=== PATIENT | male | born 1940 | race Caucasian/White ===

== ENCOUNTER 2017-05-15 11:06 | Inpatient (IN) | payer MEDICARE ==
--- NOTE | 2017-05-10 16:12 | Diagnostic Imaging Report ---
PROCEDURE: Frontal and lateral views of the chest. COMPARISON: Patients [facility], DX, CHEST 2 VIEWS, 03/13/2015, 9:48. INDICATIONS: PRE OP FINDINGS: Lines/tubes: None. Lungs: The lungs are well inflated and clear. There is no evidence of pneumonia or pulmonary edema. Pleura: There is no pleural effusion or pneumothorax. Heart and mediastinum: The heart and the mediastinum are normal. Bones: No acute bony abnormality. Bilateral shoulder small orthopedics anchors. IMPRESSION: 1. No acute cardiopulmonary disease. Markus Pastrana M.D. Dictated by: Markus Pastrana M.D. on 05/10/2017 at 16:19 Electronically approved by: Markus Pastrana M.D. on 05/10/2017 at 16:19
[2017-05-12 08:46] LABS: BASOPHILS # (AUTO) 0.1 (0.0-0.1); BASOPHILS % 0.6 % (0.0-1.0); HEMATOCRIT 43.8 % (38.2-49.6); HEMOGLOBIN 14.3 g/dL (14.0-18.0); LYMPHOCYTES # (AUTO) 1.5 (1.0-3.2); LYMPHOCYTES % 18.3 % (18.0-39.1); MEAN CORPUSCULAR HEMOGLOBIN 29.6 pg (28-32); MEAN CORPUSCULAR HGB CONC 32.6 g/dL (31-35); MEAN CORPUSCULAR VOLUME 90.7 fL (81-99); MONOCYTES # (AUTO) 0.9 (0.2-0.8); MONOCYTES % 10.7 % (4.4-11.3); NEUTROPHILS # (AUTO) 5.8 (2.1-6.9); NEUTROPHILS % 69.3 % (38.7-80.0); PLATELET COUNT 218 x10e3/uL (140-360); RED BLOOD COUNT 4.83 x10e6/uL (4.3-5.7); RED CELL DISTRIBUTION WIDTH 12.7 % (11.7-14.4)
[2017-05-12 09:09] LABS: ALBUMIN 3.4 g/dL (3.5-5.0); ALBUMIN/GLOBULIN RATIO 0.9 (0.8-2.0); CALCIUM 9.4 mg/dL (8.4-10.2); CREATININE, SERUM 1.36 mg/dL (0.72-1.25)
[~2017-05-15] VITALS: Ht 165.1 cm; Wt 77.6 kg
[2017-05-15 04:00] VITALS: BP 102/67
[~2017-05-15 11:06] MED LIST: AMLODIPINE BESY10 MG PO; ATENOLOL50 MG PO; BYSTOLIC10 MG PO; DICLOFENAC SODI75 MG PO; EQUATE ALLERGY; EXFORGE PO; FLOMAX PO; GABAPENTIN300 MG PO; LISINOPRIL40 MG PO; LORTAB 7.5-5001 EACH PO; LOSARTAN POTAS100 MG PO; LOVASTATIN40 MG PO; LOVENOX40 MG/0.4 SC; LYRICA75 MG PO; TAMSULOSIN HCL0.4 MG PO; TRAMADOL PO; ULTRAM50 MG PO; [UNRECOGNIZED DRUG - OTHER]
[2017-05-15] MEDS ORDERED: CEFAZOLIN SOD 1 GM/NS 50ML 50 ML IV ONE (11:18)
[2017-05-15] MEDS ORDERED: DIPHENHYDRAMINE HCL INJ 50 MG/ML VIAL IM PRN (15:00)
[2017-05-15] MEDS ORDERED: ACETAMINOPHEN 1000 MG/100 ML IV PRN (15:00)
[2017-05-15] MEDS ORDERED: NALOXONE HCL INJ 0.4 MG/ML AMP IV PRN (15:00)
[2017-05-15] MEDS ORDERED: FENTANYL CITRATE/PF 100MCG/2 ML INJ ONE ×3 (15:36→17:34)
[2017-05-15] MEDS ORDERED: MORPHINE SULFATE 1 MG/ML 30ML PCA ONE (15:42)
[2017-05-15] MEDS ORDERED: MIDAZOLAM HCL 2 MG/2 ML VIAL ONE (15:52)
[2017-05-15] MEDS ORDERED: MORPHINE SULFATE 5 MG/ML VIAL ONE (15:55)
[2017-05-15] MEDS ORDERED: HYDROMORPHONE 2MG/ML INJ ONE (16:05)
--- NOTE | 2017-05-15 16:48 | Diagnostic Imaging Report ---
PROCEDURE: A single AP view of the chest. COMPARISON: None. INDICATIONS: FOLLOW UP PNEUMOTHORAX FINDINGS: Lines/tubes: None. Lungs: Near total collapse of the right lung. The left lung is clear . Pleura: Large right pneumothorax, measuring 8.2 cm and the right midclavicular line. Heart and mediastinum: The heart and the mediastinum are unremarkable. Bones: No acute bony abnormality. IMPRESSION: Large right pneumothorax. The findings were discussed with Dr. Brandon at 1652 hrs. on 05/15/2017. Dictated by: Ori Goldberg M.D. on 05/15/2017 at 16:56 Electronically approved by: Ori Goldberg M.D. on 05/15/2017 at 16:56
[2017-05-15] MEDS: DOCUSATE SODIUM 100 MG CAP PO SCH (17:00)
[2017-05-15 17:57] VITALS: BP 125/58
[2017-05-15] MEDS ORDERED: NEOSTIGMINE 5 MG/5ML SYR ONE (18:20)
[2017-05-15] MEDS ORDERED: ROCURONIUM BROMIDE 10 MG/ML 5ML VIAL ONE (18:20)
[2017-05-15] MEDS ORDERED: LIDOCAINE HCL 2% LOCAL INJ 5 ML SDV VIAL INJ ONE (18:20)
[2017-05-15] MEDS ORDERED: PROPOFOL IV EMULSION 10 MG/ML 20 ML VIAL ONE (18:20)
[2017-05-15] MEDS ORDERED: EPHEDRINE SULFATE INJ 50 MG/10 ML SYR ONE (18:20)
[2017-05-15] MEDS ORDERED: ONDANSETRON HCL INJ 2 MG/ML VIAL ONE (18:20)
[2017-05-15] MEDS ORDERED: GLYCOPYRROLATE INJ 1MG/ 5 ML SYR ONE (18:20)
[2017-05-15] MEDS ORDERED: SEVOFLURANE INHAL SOLN 250 ML PEN BTL ONE (18:20)
[2017-05-15] MEDS ORDERED: DEXAMETHASONE SOD PHOS INJ 4 MG/ML VIAL ONE (18:20)
[2017-05-15 18:28] VITALS: BP 125/58
--- NOTE | 2017-05-15 18:34 | Diagnostic Imaging Report ---
PROCEDURE:IMAGE GUIDANCE-FLUOR0(DRAINAGE TECHNIQUE: INDICATION:Right pneumothorax COMPARISON:Portable chest 05/15/2017. FINDINGS: The patient was placed supine on the fluoroscopy unit. The right lateral chest wall was prepped and draped in the usual sterile fashion. 1% lidocaine was infused into the subcutaneous tissues for local anesthesia. An 18 gauge needle was advanced into the right pleural space along the midaxillary line at the level of the interspace between ribs 5 and 6. A 0.035 Bentson wire was advanced centrally fluoroscopic guidance. A single dilation was performed over the wire. A 12 Citizen [place] all purpose drainage catheter was advanced over the wire. The tip of the catheter was positioned in the right apex. The wire was removed. The catheter was locked into position. The catheter was secured to the skin with 3-0 Ethilon suture. The right pneumothorax was aspirated. The catheter was attached to closed vacuum drainage and then to wall suction. A sterile dressing was applied. No immediate complications. The patient tolerated the procedure well. The patient was transferred to the post procedure area in stable unchanged condition. CONCLUSION: Successful placement of a right pleural drainage catheter utilizing fluoroscopic guidance for a right pneumothorax. Dictated by: Ori Goldberg M.D. on 05/15/2017 at 18:41 Electronically approved by: Ori Goldberg M.D. on 05/15/2017 at 18:41
[2017-05-15] MEDS: D5.45%NS/KCL 20MEQ 1,000 ML IV SCH ×2 (18:57→22:55)
[2017-05-15 20:00] VITALS: BP 136/67
[2017-05-15] MEDS: CEFAZOLIN SOD 1 GM/NS 50ML 50 ML IV SCH (22:02)
[2017-05-16 00:01] VITALS: BP 151/71
[2017-05-16] MEDS: ONDANSETRON HCL INJ 2 MG/ML VIAL IV PRN (02:46)
[2017-05-16] MEDS: D5.45%NS/KCL 20MEQ 1,000 ML IV SCH ×3 (02:46→22:55)
[2017-05-16 04:00] VITALS: BP 140/66
[2017-05-16] MEDS: MORPHINE SULFATE 1 MG/ML 30ML PCA IV PRN ×2 (04:25→19:04)
[2017-05-16] MEDS: CEFAZOLIN SOD 1 GM/NS 50ML 50 ML IV SCH ×3 (05:13→21:45)
[2017-05-16] MEDS ORDERED: METHOCARBAMOL 750 MG TAB PO PRN (05:15)
[2017-05-16] MEDS ORDERED: DIAZEPAM INJ 5 MG/ML 2 ML IV ONE (05:30)
--- NOTE | 2017-05-16 06:57 | Diagnostic Imaging Report ---
EXAM: CHEST SINGLE (PORTABLE), AP 1 view DATE: 05/16/2017 6:00 AM Time stamp on exam: 0542 hours INDICATION: Right pneumothorax, chest tube COMPARISON: AP view of the chest May 15, 2017 at 1616 hours FINDINGS: LINES/TUBES: Interval placement of right pleural pigtail catheter. LUNGS: Mild residual right lower lobe atelectasis. PLEURA: No effusions or pneumothorax. HEART AND MEDIASTINUM: Stable appearance. BONES AND SOFT TISSUES: Surgical clips and mame project over the right upper quadrant of the abdomen. Ligamentous screw projects over the left humeral head. IMPRESSION: Interval placement of right pleural pigtail catheter. No residual pneumothorax. Signed by: Dr. Nataly Mi M.D. on 05/16/2017 6:53 AM
[2017-05-16 07:46] LABS: ANION GAP 12.4 mmol/L (8-16); CALCIUM 8.9 mg/dL (8.4-10.2); CREATININE, SERUM 1.94 mg/dL (0.72-1.25); POTASSIUM 4.4 mmol/L (3.5-5.1)
[2017-05-16 07:49] VITALS: BP 155/72
[2017-05-16 07:49] LABS: BASOPHILS % 0.2 % (0.0-1.0); HEMATOCRIT 40.8 % (38.2-49.6); HEMOGLOBIN 13.5 g/dL (14.0-18.0); LYMPHOCYTES # (AUTO) 0.7 (1.0-3.2); LYMPHOCYTES % 5.6 % (18.0-39.1); MEAN CORPUSCULAR HEMOGLOBIN 29.5 pg (28-32); MEAN CORPUSCULAR HGB CONC 33.1 g/dL (31-35); MEAN CORPUSCULAR VOLUME 89.1 fL (81-99); MONOCYTES # (AUTO) 1.4 (0.2-0.8); MONOCYTES % 11.1 % (4.4-11.3); NEUTROPHILS # (AUTO) 10.5 (2.1-6.9); NEUTROPHILS % 82.6 % (38.7-80.0); PLATELET COUNT 209 x10e3/uL (140-360); RED BLOOD COUNT 4.58 x10e6/uL (4.3-5.7); RED CELL DISTRIBUTION WIDTH 12.3 % (11.7-14.4)
[2017-05-16] MEDS: DOCUSATE SODIUM 100 MG CAP PO SCH ×2 (09:00→15:56)
[2017-05-16 13:02] VITALS: BP 153/70
[2017-05-16 16:30] VITALS: BP 136/62
--- NOTE | 2017-05-16 16:33 | Diagnostic Imaging Report ---
PROCEDURE: A single AP view of the chest. COMPARISON: Patients [facility], DX, CHEST SINGLE (PORTABLE), 05/16/2017, 5:42. INDICATIONS: SURGERY YESTERDAY, FOLLOW UP PNEUMOTHORAX FINDINGS: Lines/tubes: Stable right pleural pigtail catheter. Lungs: Lungs are slightly hypoinflated. Slight improvement in linear opacities in the right lower lung, consistent with atelectasis. No consolidation or pulmonary edema. Pleura: There is no pleural effusion or pneumothorax. Heart and mediastinum: Mild prominence of the cardiac silhouette, likely due to AP portable projection. Pulmonary vasculature is normal. Bones: No acute bony abnormality. IMPRESSION: 1. no pneumothorax is visualized. Iker Samuels M.D. Dictated by: Iker Samuels M.D. on 05/16/2017 at 16:40 Electronically approved by: Iker Samuels M.D. on 05/16/2017 at 16:40
[2017-05-16 20:00] VITALS: BP 171/69
[2017-05-16] MEDS: AMLODIPINE BESYLATE 10 MG TAB PO SCH (21:35)
[2017-05-16] MEDS: SIMVASTATIN 20 MG TAB PO SCH (21:35)
[2017-05-16] MEDS: ATENOLOL 50 MG TAB PO SCH (21:35)
[2017-05-16] MEDS: TAMSULOSIN HCL 0.4 MG CAP PO SCH (21:35)
[2017-05-17] VITALS: BP 154/70
--- NOTE | 2017-05-17 00:20 | Consultation ---
DATE OF CONSULTATION: May 16, 2017 PULMONARY CONSULTATION HISTORY: An unfortunate 76-year-old gentleman, status post right nephrectomy for cancer incidentally found during an MRI of the spine. He was to have an ablation. MEDICATIONS: Diclofenac, losartan, amlodipine, Flomax, atenolol, lovastatin, and tramadol. History of hypertension, history of inflammation of pericardium, history of degenerative arthritis. SOCIAL HISTORY: He was a high school biology teacher, principal. Nonsmoker. No alcohol. Born in [place]. Had gallbladder surgery, knee replacement, toe surgery, rotator cuff surgery, back surgery. FAMILY HISTORY: Positive for cancer of the colon, coronary artery disease, and heart disease. PHYSICAL EXAMINATION GENERAL: He is a well-developed white male looking younger than stated age. VITALS: Temperature 97.4, pulse 55, respiration 17, blood pressure 153/71. HEAD: Normocephalic, atraumatic. EYES: Extraocular muscles intact. LUNGS: Diminished breath sounds, but clear. Chest tube right chest. No wheeze. No obvious air drainage. ABDOMEN: Nontender surgical wound. EXTREMITIES: Not edematous. Surgical scars. IMPRESSION: Resolved pneumothorax. No obvious air leak. PLAN: Discontinue chest tube. Mobilization. Incentive spirometry. Thank you for this kind referral. Job#: [id number] CQ
[2017-05-17] MEDS: D5.45%NS/KCL 20MEQ 1,000 ML IV SCH ×3 (03:32→13:27)
[2017-05-17] MEDS: CEFAZOLIN SOD 1 GM/NS 50ML 50 ML IV SCH ×3 (05:47→21:45)
[2017-05-17 06:48] LABS: BASOPHILS % 0.4 % (0.0-1.0); HEMATOCRIT 38.5 % (38.2-49.6); HEMOGLOBIN 12.5 g/dL (14.0-18.0); LYMPHOCYTES % 8.7 % (18.0-39.1); MEAN CORPUSCULAR HEMOGLOBIN 29.3 pg (28-32); MEAN CORPUSCULAR HGB CONC 32.5 g/dL (31-35); MEAN CORPUSCULAR VOLUME 90.2 fL (81-99); MONOCYTES # (AUTO) 1.4 (0.2-0.8); MONOCYTES % 12.4 % (4.4-11.3); NEUTROPHILS # (AUTO) 8.8 (2.1-6.9); PLATELET COUNT 188 x10e3/uL (140-360); RED BLOOD COUNT 4.27 x10e6/uL (4.3-5.7); RED CELL DISTRIBUTION WIDTH 12.5 % (11.7-14.4)
[2017-05-17 07:31] LABS: ANION GAP 8.6 mmol/L (8-16); CALCIUM 8.7 mg/dL (8.4-10.2); POTASSIUM 4.6 mmol/L (3.5-5.1)
[2017-05-17 08:15] VITALS: BP 162/72
[2017-05-17] MEDS: DOCUSATE SODIUM 100 MG CAP PO SCH ×2 (09:13→17:21)
[2017-05-17] MEDS: LOSARTAN POTASSIUM 100 MG TAB PO SCH (09:13)
[2017-05-17 12:13] VITALS: BP 134/89
[2017-05-17] MEDS: CEPACOL SORE THROAT LOZENGES PO PRN (12:28)
--- NOTE | 2017-05-17 12:44 | Diagnostic Imaging Report ---
PROCEDURE:CHEST TUBE REMOVAL CATH COMPARISON:Portable chest 05/16/2017. INDICATIONS:Right pneumothorax. FINDINGS:Focused evaluation demonstrated right thoracostomy catheter with the tip projecting over the expected region of the right midlung. No pneumothorax is visualized. The existing catheter was prepped and draped in usual sterile fashion. The catheter was cut and removed. No pneumothorax was visualized. Sterile dressing was applied. No complications. The patient tolerated the procedure well. The patient was transferred to the post procedure area in stable unchanged condition. CONCLUSION: Successful removal of the right pleural drainage catheter utilizing fluoroscopic guidance. Dictated by: Ori Goldberg M.D. on 05/17/2017 at 12:51 Electronically approved by: Ori Goldberg M.D. on 05/17/2017 at 12:51
[2017-05-17] MEDS ORDERED: MORPHINE SULFATE 1 MG/ML 30ML PCA IV PRN (16:00)
[2017-05-17 16:29] VITALS: BP 157/69
[2017-05-17] MEDS ORDERED: TRAMADOL HCL 50 MG TAB PO PRN (17:30)
[2017-05-17 20:00] VITALS: BP 148/67
[2017-05-17] MEDS: AMLODIPINE BESYLATE 10 MG TAB PO SCH (21:44)
[2017-05-17] MEDS: TAMSULOSIN HCL 0.4 MG CAP PO SCH (21:44)
[2017-05-17] MEDS: SIMVASTATIN 20 MG TAB PO SCH (21:44)
[2017-05-17] MEDS: ATENOLOL 50 MG TAB PO SCH (21:44)
[2017-05-17] MEDS: ONDANSETRON HCL INJ 2 MG/ML VIAL IV PRN (22:27)
[2017-05-18] VITALS: BP 146/68
[2017-05-18] MEDS: D5.45%NS/KCL 20MEQ 1,000 ML IV SCH ×2 (03:16→17:30)
[2017-05-18 04:00] VITALS: BP 159/70
[2017-05-18] MEDS: CEFAZOLIN SOD 1 GM/NS 50ML 50 ML IV SCH (05:50)
[2017-05-18 07:01] LABS: BASOPHILS % 0.3 % (0.0-1.0); HEMATOCRIT 36.3 % (38.2-49.6); HEMOGLOBIN 12.3 g/dL (14.0-18.0); LYMPHOCYTES # (AUTO) 0.6 (1.0-3.2); LYMPHOCYTES % 5.6 % (18.0-39.1); MEAN CORPUSCULAR HEMOGLOBIN 29.9 pg (28-32); MEAN CORPUSCULAR HGB CONC 33.9 g/dL (31-35); MEAN CORPUSCULAR VOLUME 88.1 fL (81-99); MONOCYTES # (AUTO) 0.9 (0.2-0.8); MONOCYTES % 8.1 % (4.4-11.3); NEUTROPHILS # (AUTO) 9.7 (2.1-6.9); PLATELET COUNT 202 x10e3/uL (140-360); RED BLOOD COUNT 4.12 x10e6/uL (4.3-5.7); RED CELL DISTRIBUTION WIDTH 12.2 % (11.7-14.4)
[2017-05-18 07:16] LABS: ANION GAP 11.2 mmol/L (8-16); CALCIUM 8.7 mg/dL (8.4-10.2); CREATININE, SERUM 1.96 mg/dL (0.72-1.25); POTASSIUM 4.2 mmol/L (3.5-5.1)
[2017-05-18] MEDS: CEPACOL SORE THROAT LOZENGES PO PRN (08:20)
[2017-05-18] MEDS: ONDANSETRON HCL INJ 2 MG/ML VIAL IV PRN ×2 (08:20→12:49)
[2017-05-18] MEDS: DOCUSATE SODIUM 100 MG CAP PO SCH ×2 (08:20→16:38)
[2017-05-18 08:26] VITALS: BP 149/69
[2017-05-18] MEDS: LOSARTAN POTASSIUM 100 MG TAB PO SCH (08:29)
[2017-05-18] MEDS ORDERED: BISACODYL 10 MG SUPP PR PRN (09:00)
[2017-05-18] MEDS ORDERED: BISACODYL 10 MG SUPP PR NR (09:30)
[2017-05-18 12:47] VITALS: BP 117/60
[2017-05-18] MEDS: CEFAZOLIN SOD 1 GM VIAL IV SCH ×2 (14:22→21:46)
[2017-05-18 16:12] VITALS: BP 141/63
[2017-05-18] MEDS ORDERED: PANTOPRAZOLE 40 MG 10ML VIAL IV STA (16:15)
[2017-05-18] MEDS: ACETAMINOPHEN/CODEINE 300MG - 30MG TAB PO PRN (18:15)
[2017-05-18 20:00] VITALS: BP 132/67
[2017-05-18] MEDS: TAMSULOSIN HCL 0.4 MG CAP PO SCH (21:45)
[2017-05-18] MEDS: ATENOLOL 50 MG TAB PO SCH (21:46)
[2017-05-18] MEDS: AMLODIPINE BESYLATE 10 MG TAB PO SCH (21:46)
[2017-05-18] MEDS: SIMVASTATIN 20 MG TAB PO SCH (21:46)
[2017-05-19] VITALS: BP 136/65
[2017-05-19 04:00] VITALS: BP 135/65
[2017-05-19] MEDS: CEFAZOLIN SOD 1 GM VIAL IV SCH (05:42)
[2017-05-19 06:40] LABS: BASOPHILS # (AUTO) 0.1 (0.0-0.1); BASOPHILS % 0.4 % (0.0-1.0); HEMATOCRIT 36.2 % (38.2-49.6); HEMOGLOBIN 11.8 g/dL (14.0-18.0); LYMPHOCYTES # (AUTO) 0.8 (1.0-3.2); LYMPHOCYTES % 6.4 % (18.0-39.1); MEAN CORPUSCULAR HEMOGLOBIN 29.1 pg (28-32); MEAN CORPUSCULAR HGB CONC 32.6 g/dL (31-35); MEAN CORPUSCULAR VOLUME 89.2 fL (81-99); MONOCYTES # (AUTO) 1.1 (0.2-0.8); MONOCYTES % 9.3 % (4.4-11.3); NEUTROPHILS # (AUTO) 9.8 (2.1-6.9); NEUTROPHILS % 82.9 % (38.7-80.0); PLATELET COUNT 230 x10e3/uL (140-360); RED BLOOD COUNT 4.06 x10e6/uL (4.3-5.7); RED CELL DISTRIBUTION WIDTH 12.2 % (11.7-14.4)
[2017-05-19 07:07] LABS: ANION GAP 12.1 mmol/L (8-16); CALCIUM 9.2 mg/dL (8.4-10.2); CREATININE, SERUM 1.94 mg/dL (0.72-1.25); POTASSIUM 4.1 mmol/L (3.5-5.1)
[2017-05-19] MEDS: LOSARTAN POTASSIUM 100 MG TAB PO SCH (08:42)
[2017-05-19] MEDS: DOCUSATE SODIUM 100 MG CAP PO SCH (08:42)
[2017-05-19] MEDS ORDERED: PANTOPRAZOLE 40 MG 10ML VIAL IV SCH (09:00)
[2017-05-19 09:22] VITALS: BP 142/67
[2017-05-19] MEDS ORDERED: FENTANYL CITRATE/PF 100MCG/2 ML INJ ONE (09:55)
[2017-05-19] MEDS: D5.45%NS/KCL 20MEQ 1,000 ML IV SCH (10:33)
[2017-05-19] MEDS ORDERED: TYLENOL WITH C1 EACH PO (11:12)
[2017-05-19] MEDS ORDERED: COLACE100 MG PO (11:13)
[2017-05-19] MEDS: ACETAMINOPHEN/CODEINE 300MG - 30MG TAB PO PRN (11:31)
--- NOTE | 2017-06-19 02:35 | Discharge Summary ---
DISCHARGE DIAGNOSES 1. Right renal carcinoma. 2. Status post right radical nephrectomy. HISTORY OF PRESENT ILLNESS AND HOSPITAL COURSE: See hospital chart for full details. Patient is a gentleman who presented with outside workup that showed a right renal mass that was removed by Dr. Brandon with a right radical nephrectomy that did show renal cell carcinoma. Patient postoperatively did well. At the time of discharge, he was able to ambulate with minimal pain. He is able to have bowel movements and eat well and he was discharged in good condition to follow up in 1 to 2 weeks. Please see hospital chart for full details. STEPHANIE BUCHANAN MD Job#: [id number] CF
== END 2017-05-19 11:43 | disposition home or self-care (01) | DRG 657 ==
LOC: OR 11:06 → MED/SURG 18:20 → UNDOADMIN 18:20 → MED/SURG 18:21
PROVIDERS: ADMIT Internal Medicine; ATTEND Internal Medicine
PROC: 0TT00ZZ Resection of Right Kidney, Open Approach (ICD-10-PCS; 2017-05-15)
PROC: 0PT10ZZ Resection of 1 to 2 Ribs, Open Approach (ICD-10-PCS; 2017-05-15)
PROC: 0W9930Z Drainage of Right Pleural Cavity with Drainage Device, Percutaneous Approach (ICD-10-PCS; principal; 2017-05-15 12:44)
PROC: 0WP9X0Z Removal of Drainage Device from Right Pleural Cavity, External Approach (ICD-10-PCS; 2017-05-17)
DX: C64.1 Malignant neoplasm of right kidney, except renal pelvis (principal); N17.9 Acute kidney failure, unspecified; M19.90 Unspecified osteoarthritis, unspecified site; I12.9 Hypertensive chronic kidney disease with stage 1 through stage 4 chronic kidney disease, or unspecified chronic kidney disease; N18.3 Chronic kidney disease, stage 3 (moderate); N40.1 Benign prostatic hyperplasia with lower urinary tract symptoms; R35.1 Nocturia
CPT/HCPCS: 32552; 32557; 36415; 71010; 71020; 74470; 75989; 80048; 80053; 83735; 85025; 86850; 86900; 86920; 88307; 93005; J0690; J1100; J1200; J2001; J2250; J2270; J2405; J3360

== ENCOUNTER → 2018-03-06 | Outpatient (CLI) | payer MEDICARE ==
[~2018-03-06] MED LIST changes: +COLACE100 MG PO; +TYLENOL WITH C1 EACH PO
== END ==
LOC: RAD 09:33
PROVIDERS: ATTEND Internal Medicine
DX: R06.00 Dyspnea, unspecified (principal)
CPT/HCPCS: 93306

== ENCOUNTER → 2018-05-08 | Day surgery (SDC) | payer MEDICARE ==
[2018-05-01 15:39] LABS: BASOPHILS # (AUTO) 0.1 (0.0-0.1); HEMATOCRIT 43.9 % (38.2-49.6); HEMOGLOBIN 14.4 g/dL (14.0-18.0); LYMPHOCYTES # (AUTO) 1.6 (1.0-3.2); LYMPHOCYTES % 19.6 % (18.0-39.1); MEAN CORPUSCULAR HEMOGLOBIN 29.3 pg (28-32); MEAN CORPUSCULAR HGB CONC 32.8 g/dL (31-35); MEAN CORPUSCULAR VOLUME 89.2 fL (81-99); MONOCYTES # (AUTO) 0.9 (0.2-0.8); MONOCYTES % 11.4 % (4.4-11.3); NEUTROPHILS # (AUTO) 5.5 (2.1-6.9); NEUTROPHILS % 67.3 % (38.7-80.0); PLATELET COUNT 230 x10e3/uL (140-360); RED BLOOD COUNT 4.92 x10e6/uL (4.3-5.7)
[2018-05-01 15:48] LABS: INR 0.89; PROTHROMBIN TIME 12.9 seconds (11.9-14.5)
[2018-05-01 16:00] LABS: ALBUMIN 3.7 g/dL (3.5-5.0); ALBUMIN/GLOBULIN RATIO 0.9 (0.8-2.0); ANION GAP 13.9 mmol/L (8-16); CALCIUM 9.8 mg/dL (8.4-10.2); CREATININE, SERUM 1.99 mg/dL (0.72-1.25); POTASSIUM 4.9 mmol/L (3.5-5.1)
[~2018-05-08] VITALS: Ht 165.1 cm; Wt 98.9 kg
[~2018-05-08] MED LIST changes: +ALPRAZOLAM 0.5 MG TAB ONE; +DIPHENHYDRAMINE HCL 25 MG CAP ONE; +FENTANYL CITRATE/PF 100MCG/2 ML INJ ONE; +HEPARIN SOD/SOD CHLORIDE 1,000 ML ONE; +IOPAMIDOL 370 MG/ML 200 ML INFUS..BTL INJ ONE; +LIDOCAINE HCL 2% LOCAL 20 ML VIAL ONE; +MIDAZOLAM HCL 2 MG/2 ML VIAL ONE; +SODIUM CHLORIDE 0.9% 1000ML 1,000 ML ONE; +VERAPAMIL HCL 2.5 MG/ML 2 ML VIAL ONE
--- OUTSIDE RECORDS SUMMARY | 2018-05-08 11:33 | XMS REPORT ---
Author Author [facility] Address Unknown Phone Unavailable Care Team Providers Care Radiology Clerk Name Role Phone STEPHANIE BUCHANAN Unavailable Unavailable Problems This patient has no known problems. Allergies, Adverse Reactions, Alerts This patient has no known allergies or adverse reactions. Medications This patient has no known medications. Results Test Description Test Time Test Comments Text Results Atomic Results Result Comments CHEST TUBE REMOVAL CATH [place] [address] Patient Name: ORIANA TORO V MR #: [id number] : 1940 Age/Sex: 76/M Req #: [id number] Adm Physician: STEPHANIE BUCHANAN MD Ordered by: NEL CARVALHO MD Report #: [id number] Location: MED/SURG Room/Bed: [facility] Procedure: [id number] IR/CHEST TUBE REMOVAL CATH Exam Date: Exam Time: REPORT STATUS: Signed PROCEDURE: CHEST TUBE REMOVAL CATH COMPARISON: Portable chest 05/16/2017. INDICATIONS: Right pneumothorax. FINDINGS: Focused evaluation demonstrated right thoracostomy catheter with the tip projecting over the expected region of the right midlung. No pneumothorax is visualized. The existing catheter was prepped and draped in usual sterile fashion. The catheter was cut and removed. No pneumothorax was visualized. Sterile dressing was applied. No complications. The patient tolerated the procedure well. The patient was transferred to the post procedure area in stable unchanged condition. CONCLUSION: Successful removal of the right pleural drainage catheter utilizing fluoroscopic guidance. Dictated by: Deric Medel M.D. on 05/17/2017 at 12:51 Electronically approved by: Deric Medel M.D. on 05/17/2017 at 12:51 Dictated By: DERIC MEDEL MD 1251 Transcribed By: YASMINE on 05/17/17 1251 COPY TO: NEL CARVALHO MD IR CONSULT [place] [address] Patient Name: ORIANA TORO V MR #: [id number] : 1940 Age/Sex: 76/M Req #: [id number] Adm Physician: STEPHANIE BUCHANAN MD Ordered by: NEL CARVALHO MD Report #: [id number] Location: MED/SURG Room/Bed: [facility] Procedure: [id number] DX/IR CONSULT Exam Date: Exam Time: REPORT STATUS: Signed PROCEDURE: CHEST TUBE REMOVAL CATH COMPARISON: Portable chest 05/16/2017. INDICATIONS: Right pneumothorax. FINDINGS: Focused evaluation demonstrated right thoracostomy catheter with the tip projecting over the expected region of the right midlung. No pneumothorax is visualized. The existing catheter was prepped and draped in usual sterile fashion. The catheter was cut and removed. No pneumothorax was visualized. Sterile dressing was applied. No complications. The patient tolerated the procedure well. The patient was transferred to the post procedure area in stable unchanged condition. CONCLUSION: Successful removal of the right pleural drainage catheter utilizing fluoroscopic guidance. Dictated by: Deric Medel M.D. on 05/17/2017 at 12:51 Electronically approved by: Deric Medel M.D. on 05/17/2017 at 12:51 Dictated By: DERIC MEDEL MD 1251 Transcribed By: YASMINE on 05/17/17 1251 COPY TO: NEL CARVALHO MD CHEST SINGLE (PORTABLE) [place] [address] Patient Name: ORIANA TORO V MR #: [id number] : 1940 Age/Sex: 76/M Req #: [id number] Adm Physician: STEPHANIE BUCHANAN MD Ordered by: NEL CARVALHO MD Report #: [id number] Location: MED/SURG Room/Bed: [facility] Procedure: [id number] DX/CHEST SINGLE (PORTABLE) Exam Date: 05/16/17 Exam Time: 1540 REPORT STATUS: Signed PROCEDURE: A single AP view of the chest. COMPARISON: [facility], DX, CHEST SINGLE (PORTABLE), 05/16/2017, 5:42. INDICATIONS: SURGERY YESTERDAY, FOLLOW UP PNEUMOTHORAX FINDINGS: Lines/tubes: Stable right pleural pigtail catheter. Lungs: Lungs are slightly hypoinflated. Slight improvement in linear opacities in the right lower lung, consistent with atelectasis. No consolidation or pulmonary edema. Pleura: There is no pleural effusion or pneumothorax. Heart and mediastinum: Mild prominence of the cardiac silhouette, likely due to AP portable projection. Pulmonary vasculature is normal. Bones: No acute bony abnormality. IMPRESSION: 1. no pneumothorax is visualized. Niurka Samuels M.D. Dictated by: Niurka Samuels M.D. on 05/16/2017 at 16:40 Electronically approved by: Niurka Samuels M.D. on 05/16/2017 at 16:40 Dictated By: NIURKA SAMUELS MD 1640 Transcribed By: YASMINE on 05/16/17 1640 COPY TO: NEL CARVALHO MD CHEST SINGLE (PORTABLE) [place] [address] Patient Name: ORIANA TORO V MR #: [id number] : 1940 Age/Sex: 76/M Req #: [id number] Adm Physician: SHIRLEY BRANDON MD Ordered by: NEL CARVALHO MD Report #: [id number] Location: MED/SURG Room/Bed: [facility] Procedure: [id number] DX/CHEST SINGLE (PORTABLE) Exam Date: 05/16/17 Exam Time: 0520 REPORT STATUS: Signed EXAM: CHEST SINGLE (PORTABLE), AP 1 view DATE: 05/16/2017 6:00 AM Time stamp on exam: 0542 hours INDICATION: Right pneumothorax, chest tube COMPARISON: AP view of the chest May 15, 2017 at 1616 hours FINDINGS: LINES/TUBES: Interval placement of right pleural pigtail catheter. LUNGS: Mild residual right lower lobe atelectasis. PLEURA: No effusions or pneumothorax. HEART AND MEDIASTINUM: Stable appearance. BONES AND SOFT TISSUES: Surgical clips and mame project over the right upper quadrant of the abdomen. Ligamentous screw projects over the left humeral head. IMPRESSION: Interval placement of right pleural pigtail catheter. No residual pneumothorax. Signed by: Dr. Kevin Shukla M.D. on 05/16/2017 6:53 AM Dictated By: KEVIN SHUKLA MD El ectronically Signed By: KEVIN SHUKLA MD on 05/16/17 0653 Transcribed By: JESUS on 05/16/17 0653 COPY TO: NEL CARVALHO MD IMAGE GUIDANCE-FLUOR0(DRAINAGE [facility] [address] [address] Patient Name: ORIANA TORO V MR #: [id number] : 1940 Age/Sex: 76/M Req #: [id number] Adm Physician: SHIRLEY BRANDON MD Ordered by: SHIRLEY BRANDON MD Report #: [id number] Location: MED/SURG Room/Bed: [facility] Procedure: [id number] DX/IMAGE GUIDANCE-FLUOR0(DRAINAGE Exam Date: Exam Time: REPORT STATUS: Signed PROCEDURE: IMAGE GUIDANCE-FLUOR0(DRAINAGE TECHNIQUE: INDICATION: Right pneumothorax COMPARISON: Portable chest 05/15/2017. FINDINGS: The patient was placed supine on the fluoroscopy unit. The right lateral chest wall was prepped and draped in the usual sterile fashion. 1% lidocaine was infused into the subcutaneous tissues for local anesthesia. An 18 gauge needle was advanced into the right pleural space along the midaxillary line at the level of the interspace between ribs 5 and 6. A 0.035 Bentson wire was advanced centrally fluoroscopic guidance. A single dilation was performed over the wire. A 12 [place] all purpose drainage catheter was advanced over the wire. The tip of the catheter was positioned in the right apex. The wire was removed. The catheter was locked into position. The catheter was secured to the skin with 3-0 Ethilon suture. The right pneumothorax was aspirated. The catheter was attached to closed vacuum drainage and then to wall suction. A sterile dressing was applied. No immediate complications. The patient tolerated the procedure well. The patient was transferred to the post procedure area in stable unchanged condition. CONCLUSION: Successful placement of a right pleural drainage catheter utilizing fluoroscopic guidance for a right pneumothorax. Dictated by: Deric Medel M.D. on 05/15/2017 at 18:41 Electronically approved by: Deric Medel M.D. on 05/15/2017 at 18:41 Dictated By: DERIC MEDEL MD 40 Transcribed By: YASMINE on 05/15/171840 COPY TO: SHIRLEY BRANDON MD CHEST SINGLE (PORTABLE) [place] [address] Patient Name: ORIANA TORO V MR #: [id number] : 1940 Age/Sex: 76/M Req #: [id number] Adm Physician: Ordered by: SHIRLEY BRANDON MD Report #: [id number] Location: OR Room/Bed: Procedure: [id number] DX/CHEST SINGLE (PORTABLE) Exam Date: 05/15/17 Exam Time: 1620 REPORT STATUS: Signed PROCEDURE: A single AP view of the chest. COMPARISON: None. INDICATIONS: FOLLOW UP PNEUMOTHORAX FINDINGS: Lines/tubes: None. Lungs: Near total collapse of the right lung. The left lung is clear . Pleura: Large right pneumothorax, measuring 8.2 cm and the right midclavicular line. Heart and mediastinum: The heart and the mediastinum are unremarkable. Bones: No acute bony abnormality. IMPRESSION: Large right pneumothorax. The findings were discussed with Dr. Brandon at 1652 hrs. on 05/15/2017. Dictated by: Deric Medel M.D. on 05/15/2017 at 16:56 Electronically approved by: Deric Medel M.D. on 05/15/2017 at 16:56 Dictated By: DERIC MEDEL MD 55 Transcribed By: YASMINE on 05/15/171655 COPY TO: SHIRLEY BRANDON MD CHEST 2 VIEWS [facility] [address] [place] [address] Patient Name: ORIANA TORO V MR #: [id number] : 1940 Age/Sex: 76/M Req #: [id number] Adm Physician: Ordered by: SHIRLEY BRANDON MD Report #: [id number] Location: OR Room/Bed: Procedure: [id number] DX/CHEST 2 VIEWS Exam Date: 05/10/17 Exam Time: 1540 REPORT STATUS: Signed PROCEDURE: Frontal and lateral views of the chest. COMPARISON: [facility], , CHEST 2 VIEWS, 03/13/2015, 9:48. INDICATIONS: PRE OP FINDINGS: Lines/tubes: None. Lungs: The lungs are well inflated and clear. There is no evidence of pneumonia or pulmonary edema. Pleura: There is no pleural effusion or pneumothorax. Heart and mediastinum: The heart and the mediastinum are normal. Bones: No acute bony abnormality. Bilateral shoulder small orthopedics anchors. IMPRESSION: 1. No acute cardiopulmonary disease. Markus Burt M.D. Dictated by: Markus Burt M.D. on 05/10/2017 at 16:19 Electronically approved by: Markus Burt M.D. on 05/10/2017 at 16:19 Dictated By: JORGE LUIS BURT MD, MD 18 Transcribed By: YASMINE on 05/10/171618 COPY TO: SHIRLEY BRANDON MD
[2018-05-08 17:50] VITALS: BP 160/77
[2018-05-08 18:00] VITALS: BP 156/76
[2018-05-08 18:15] VITALS: BP 134/78
--- NOTE | 2018-05-08 18:20 | Operative Report ---
DATE OF PROCEDURE: May 08, 2018 INDICATION FOR PROCEDURE: Dyspnea on exertion. PREPROCEDURAL ASSESSMENT: The patient's medical record, social history, previous experiences with anesthesia and imaging findings were reviewed prior to the procedure. Patient was deemed appropriate candidate for moderate sedation. The risks, the benefits and the alternatives to the procedure were explained to the patient prior to the procedure and informed consent was obtained. MEDICATIONS: Please see nursing notes for medications administered during the procedure. PROCEDURES PERFORMED 1. Coronary angiography. 2. Left heart catheterization. PROCEDURE DETAILS: Patient was brought to the cardiac catheterization laboratory in a fasting manner. The right wrist was prepped and draped in a sterile fashion. A 6-Sinhala slender sheath was inserted into the right radial artery using the modified Seldinger technique. Coronary angiography was performed using a 5-Sinhala Leona and JR4 catheters. Left heart catheterization was performed using the Leona diagnostic catheter. All catheters were removed over a wire. The case ended without any complications. TR band was used to close arteriotomy. SIGNIFICANT FINDINGS: 1. Left main coronary artery normal, large caliber. 2. Left anterior descending artery large caliber, mild calcification. 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 3. Large left circumflex artery, codominant, mild plaquing. No obstructive CAD. Large codominant RCA, very tortuous in the mid portion, medium sized RPDA distally. Very small RPL. There is a 60% lesion of the mid RPDA. Large epicardial collateral to the distal LAD through acute marginal branch. RECOMMENDATIONS: 1. Post TR band care. 2. Continue optimal medical therapy and risk factor control. 3. Follow up in clinic 2 weeks post discharge. Job#: [id number]
[2018-05-08 18:30] VITALS: BP 160/70
[2018-05-08 18:45] VITALS: BP_SYST 162; BP_DIAS 73; BP_DIAS 77
== END | disposition home or self-care (01) ==
LOC: CATH LAB 11:30
PROVIDERS: ATTEND Internal Medicine
DX: I25.118 Atherosclerotic heart disease of native coronary artery with other forms of angina pectoris (principal); I25.82 Chronic total occlusion of coronary artery; E78.5 Hyperlipidemia, unspecified; I10 Essential (primary) hypertension; Z01.812 Encounter for preprocedural laboratory examination; Z68.37 Body mass index [BMI] 37.0-37.9, adult; Z96.653 Presence of artificial knee joint, bilateral; Z82.49 Family history of ischemic heart disease and other diseases of the circulatory system
CPT/HCPCS: 36415; 80053; 80061; 85025; 85610; 93454; C1769 ×2; J2001; J2250; J7030; Q9967

== ENCOUNTER → 2023-11-27 | Day surgery (SDC) | payer MEDICARE ==
[2023-11-24 10:35] LABS: BASOPHILS # (AUTO) 0.1 (0.0-0.1); BASOPHILS % 0.7 % (0.0-1.0); HEMATOCRIT 43.5 % (38.2-49.6); HEMOGLOBIN 13.8 g/dL (14.0-18.0); LYMPHOCYTES % 11.3 % (18.0-39.1); MEAN CORPUSCULAR HEMOGLOBIN 28.9 pg (28-32); MEAN CORPUSCULAR HGB CONC 31.7 g/dL (31-35); MEAN CORPUSCULAR VOLUME 91.2 fL (81-99); MONOCYTES # (AUTO) 0.8 (0.2-0.8); MONOCYTES % 8.3 % (4.4-11.3); NEUTROPHILS # (AUTO) 7.2 (2.1-6.9); NEUTROPHILS % 78.5 % (38.7-80.0); PLATELET COUNT 298 x10e3/uL (140-360); RED BLOOD COUNT 4.77 x10e6/uL (4.3-5.7); RED CELL DISTRIBUTION WIDTH 13.1 % (11.7-14.4); WHITE BLOOD COUNT 9.18 x10e3/uL (4.8-10.8)
[2023-11-24 15:11] LABS: ALBUMIN 3.1 g/dL (3.5-5.0); ALBUMIN/GLOBULIN RATIO 0.9 (0.8-2.0); ANION GAP 13.5 mmol/L (8-16); BILIRUBIN,TOTAL 1.1 mg/dL (0.2-1.2); CREATININE, SERUM 1.87 mg/dL (0.72-1.25); POTASSIUM 4.5 mmol/L (3.5-5.1); TOTAL PROTEIN 6.6 g/dL (6.5-8.1)
[~2023-11-27] VITALS: Ht 165.1 cm; Wt 98.4 kg
[2023-11-27] VITALS (8 sets, daily range): BP systolic 140–148; BP diastolic 64–77; PULSE 60–68; RESP 15–20; TEMP 98.6; O2SAT 97–99
[~2023-11-27] MED LIST changes: -ALPRAZOLAM 0.5 MG TAB ONE; +ASPIRIN 81 MG CHEW TAB ONE; +CLOPIDOGREL BISULFATE 75 MG TAB ONE; +CLOPIDOGREL75 MG PO; -DIPHENHYDRAMINE HCL 25 MG CAP ONE; +HEPARIN SOD (PORCINE) 1000 UNIT/ML 30ML ONE; -HEPARIN SOD/SOD CHLORIDE 1,000 ML ONE; +HEPARIN SOD/SOD CHLORIDE 2,000 ML ONE; +HYTRIN1 M1 PO; +IOPAMIDOL 370 MG/ML 100 ML INFUS..BTL INJ ONE; -IOPAMIDOL 370 MG/ML 200 ML INFUS..BTL INJ ONE; +METOPROLOL SUCC50 MG PO; +NITROGLYCERIN/D5W 200 MCG/ML 250 ML ONE; +OMEPRAZOLE40 MG PO
== END | disposition home or self-care (01) ==
LOC: CATH LAB 06:29
PROVIDERS: ATTEND Internal Medicine
DX: I25.118 Atherosclerotic heart disease of native coronary artery with other forms of angina pectoris (principal); I11.0 Hypertensive heart disease with heart failure; I50.30 Unspecified diastolic (congestive) heart failure; I48.91 Unspecified atrial fibrillation; I49.5 Sick sinus syndrome; E78.5 Hyperlipidemia, unspecified; Z88.6 Allergy status to analgesic agent; Z01.812 Encounter for preprocedural laboratory examination; Z79.02 Long term (current) use of antithrombotics/antiplatelets; Z79.899 Other long term (current) drug therapy; Z68.36 Body mass index [BMI] 36.0-36.9, adult; Z95.0 Presence of cardiac pacemaker; Z95.5 Presence of coronary angioplasty implant and graft; Z90.5 Acquired absence of kidney; Z85.528 Personal history of other malignant neoplasm of kidney; Z82.49 Family history of ischemic heart disease and other diseases of the circulatory system
CPT/HCPCS: 93460; C9600; 36415; 76937; 80053; 85025; 93457; 99152; 99153; C1725; C1769; C1874; C1887; J1644; J2001; J2250; J7030; Q9967

== ENCOUNTER 2023-12-07 09:53 | Outpatient (RCR) | payer MEDICARE ==
[~2023-12-07 09:53] MED LIST changes: -ASPIRIN 81 MG CHEW TAB ONE; -CLOPIDOGREL BISULFATE 75 MG TAB ONE; -FENTANYL CITRATE/PF 100MCG/2 ML INJ ONE; -HEPARIN SOD (PORCINE) 1000 UNIT/ML 30ML ONE; -HEPARIN SOD/SOD CHLORIDE 2,000 ML ONE; -IOPAMIDOL 370 MG/ML 100 ML INFUS..BTL INJ ONE; -LIDOCAINE HCL 2% LOCAL 20 ML VIAL ONE; -MIDAZOLAM HCL 2 MG/2 ML VIAL ONE; -NITROGLYCERIN/D5W 200 MCG/ML 250 ML ONE; -SODIUM CHLORIDE 0.9% 1000ML 1,000 ML ONE; -VERAPAMIL HCL 2.5 MG/ML 2 ML VIAL ONE
== END 2023-12-10 ==
LOC: PT 09:53
PROVIDERS: ATTEND Specialist
DX: M54.59 Other low back pain (principal); M62.81 Muscle weakness (generalized)

== ENCOUNTER 2023-12-12 10:40 | Outpatient (RCR) | payer MEDICARE | END 2024-01-10 | LOC: PT 10:40 | PROVIDERS: ATTEND Specialist | DX: M54.50 Low back pain, unspecified (principal); M62.81 Muscle weakness (generalized) ==

== ENCOUNTER → 2024-11-22 | Outpatient (REF) | payer MEDICARE | LOC: CT 13:56 | PROVIDERS: ATTEND Urology | DX: R31.0 Gross hematuria (principal); N18.9 Chronic kidney disease, unspecified; D41.01 Neoplasm of uncertain behavior of right kidney | CPT/HCPCS: 74176 ==

== ENCOUNTER 2025-01-06 16:00 | Outpatient (RCR) | payer MEDICARE | END 2025-01-09 | LOC: RESP 16:00 | PROVIDERS: ATTEND Internal Medicine | DX: R05.3 Chronic cough (principal); R29.898 Other symptoms and signs involving the musculoskeletal system | CPT/HCPCS: 94626 ×5; G0238 ×5 ==

== ENCOUNTER 2025-02-05 16:27 | Outpatient (RCR) | payer MEDICARE | END 2025-02-09 | LOC: RESP 16:27 | PROVIDERS: ATTEND Internal Medicine | DX: R05.3 Chronic cough (principal); R29.898 Other symptoms and signs involving the musculoskeletal system | CPT/HCPCS: 94626 ×4; G0238 ×4 ==

== ENCOUNTER 2025-03-06 13:00 | Outpatient (RCR) | payer MEDICARE | END 2025-03-11 | LOC: RESP 13:00 | PROVIDERS: ATTEND Internal Medicine | DX: R05.3 Chronic cough (principal); R29.898 Other symptoms and signs involving the musculoskeletal system | CPT/HCPCS: 94626 ×6; G0238 ×6 ==